=== PATIENT | male | born 1985 | race African-American/Black ===

== ENCOUNTER 2017-02-06 00:08 | Emergency (ER) | payer OTHER | END 2017-02-06 00:51 | disposition other institution (70) | LOC: ED 00:08 | DX: Z02.89 Encounter for other administrative examinations (principal); E11.9 Type 2 diabetes mellitus without complications; Z79.4 Long term (current) use of insulin; Z79.84 Long term (current) use of oral hypoglycemic drugs ==

== ENCOUNTER 2017-02-06 00:08 | Emergency (ER) | payer MEDICAID ==
[2017-02-06 00:17] VITALS: BP 138/88
== END 2017-02-06 00:51 | disposition other institution (70) ==
LOC: ED 00:08
DX: Z02.89 Encounter for other administrative examinations (principal); E11.9 Type 2 diabetes mellitus without complications; Z79.4 Long term (current) use of insulin; Z79.84 Long term (current) use of oral hypoglycemic drugs